=== PATIENT | male | born 1965 | race Caucasian/White ===

== ENCOUNTER 2020-10-08 08:53 | Observation (INO) | payer BC ==
[~2020-10-08] VITALS: Ht 182.9 cm; Wt 109.0 kg
[2020-10-08] MEDS ORDERED: GLUCAGON,HUMAN RECOMBINANT 1 MG/ML VIAL. IV ONE (09:30)
--- NOTE | 2020-10-08 10:00 | PHYS DOC ---
Past Medical History Past Medical History: High Cholesterol, Hypertension Past Surgical History: No Surgical History Smoking Status: Never Smoker Alcohol Use: Occasionally General Adult EDM: Chief Complaint: DIFFICULTY SWALLOWING HPI: HPI: Patient is a 54 year old male who presents with a chief complaint of a food bolus. Patient was eating [place] food and felt like a chicken got stuck in his throat yesterday afternoon. Patient's been unable to keep fluid down and has been unable to even keep water today. And he spits it up. Patient denies any specific pain except when he tries to eat describes mild to moderate discomfort in his chest. Patient had similar episodes in the past and had to undergo endoscopy. Patient denies any specific vomiting, fever, chills or shortness of breath. Pain in the chest is nonradiating when he eats. And is worse with food intake. Review of Systems: Review of Systems: Constitutional: Denies fever or chills. [] Eyes: Denies change in visual acuity. [] HENT: Denies nasal congestion or sore throat. [] Respiratory: Denies cough or shortness of breath. [] Cardiovascular: Patient complains of chest discomfort when eating due to the food bolus but no edema GI: Denies abdominal pain, nausea, vomiting, bloody stools or diarrhea. [] : Denies dysuria. [] Musculoskeletal: Denies back pain or joint pain. [] Integument: Denies rash. [] Neurologic: Denies headache, focal weakness or sensory changes. [] Endocrine: Denies polyuria or polydipsia. [] Lymphatic: Denies swollen glands. [] Psychiatric: Denies depression or anxiety. [] Heart Score: Risk Factors: Risk Factors: DM, Current or recent (<one month) smoker, HTN, HLP, family history of CAD, obesity. Risk Scores: Score 0 - 3: 2.5% MACE over next 6 weeks - Discharge Home Score 4 - 6: 20.3% MACE over next 6 weeks - Admit for Clinical Observation Score 7 - 10: 72.7% MACE over next 6 weeks - Early Invasive Strategies Current Medications: Current Medications Medications (Trade) Dose Ordered Sig/Hudson Start Time Stop Time Status Last Admin Dose Admin Glucagon (Glucagen) 1 mg 1X ONCE 10/08/20 09:30 10/08/20 09:31 DC 10/08/20 09:46 1 MG Allergies: Allergies: Allergies Coded Allergies Type Severity Reaction Last Updated Verified No Known Drug Allergies 10/08/20 No Physical Exam: PE: Constitutional: Well developed, well nourished, no acute distress, non-toxic appearance. [] HENT: Normocephalic, atraumatic, bilateral external ears normal, no active drooling nose normal. [] Eyes: PERRLA, EOMI, conjunctiva normal, no discharge. [] Neck: Normal range of motion, no tenderness, supple, no stridor. [] Cardiovascular:Heart rate regular rhythm, peripheral pulse intact cap refills less than 2 seconds Lungs & Thorax: Bilateral breath sounds clear, no respiratory distress Abdomen: soft, no tenderness, no masses, no pulsatile masses. [] Skin: Warm, dry, no erythema, no rash. [] Back: No tenderness, no CVA tenderness. [] Extremities: No tenderness, no cyanosis, no clubbing, ROM intact, no edema. [] Neurologic: Alert and oriented X 3, normal motor function, normal sensory function, no focal deficits noted. [] Psychologic: Affect normal, judgement normal, mood normal. [] Current Patient Data: Labs: Laboratory Tests Test 10/08/20 09:48 SARS-CoV-2 Antigen (Rapid) Negative Current Medications Medications (Trade) Dose Ordered Sig/Hudson Route PRN Reason Start Time Stop Time Status Last Admin Dose Admin Glucagon (Glucagen) 1 mg 1X ONCE IV 10/08/20 09:30 10/08/20 09:31 DC 10/08/20 09:46 Potassium Chloride/Dextrose/ Sod Cl 1,000 ml @ 125 mls/hr Q8H ONCE IV 10/08/20 10:30 10/08/20 18:29 Vital Signs: Vital Signs Date Time Temp Pulse Resp B/P (MAP) Pulse Ox O2 Delivery O2 Flow Rate FiO2 10/08/20 09:02 98.0 101 18 158/82 (107) 97 Room Air 98.0 EKG: EKG: [] Radiology/Procedures: Radiology/Procedures: [] Course & Med Decision Making: Course & Med Decision Making Pertinent Labs and Imaging studies reviewed. (See chart for details) [] 54-year-old male presents with a food bolus. Patient was given glucagon in the ER with no relief. Patient observed 3040 minutes after that and unable to have any relief. Discussed the case with Dr. Kiser who will take patient to the GI lab at 1:00 today. Maintenance fluids have been ordered. Observation orders have been written. Dragon Disclaimer: Kirsty Disclaimer: This electronic medical record was generated, in whole or in part, using a voice recognition dictation system. Departure Departure Impression: Primary Impression: Food impaction of esophagus Disposition: ADMITTED INPT THIS HOSP Admitting Physician: UMA (KYLE) Condition: STABLE Referrals: PAPITO LIU MD (PCP) JOSE DE JESUS MCDOWELL MD Oct 08, 2020 10:00
[2020-10-08] MEDS ORDERED: POTASSIUM CL 20MEQ D5-0.45NACL 1,000 ML IV ONE (10:30)
[2020-10-08] MEDS ORDERED: ONDANSETRON PF 4 MG/2 ML VIAL. IV PRN (10:45)
[2020-10-08] MEDS ORDERED: LISI-130 PO (12:34)
[2020-10-08] MEDS ORDERED: SIMV20TA18 PO (12:34)
[2020-10-08] MEDS ORDERED: ALBU2.5V8 INH (12:34)
[2020-10-08] MEDS ORDERED: ALLO300T PO (12:34)
[2020-10-08] MEDS ORDERED: PROPOFOL 10 MG/ML (20ML) VIAL. IV ONE ×5 (12:41→15:09)
[2020-10-08] MEDS ORDERED: IV RINGERS,LACTATED 1000ML 1,000 ML IV SCH (13:00)
[2020-10-08] MEDS ORDERED: GLUCAGON,HUMAN RECOMBINANT 1 MG/ML VIAL. IM ONE (15:00)
[2020-10-08] MEDS ORDERED: SUCCINYLCHOLINE 200 MG/10 ML VIAL. ONE (15:00)
[2020-10-08 15:52] VITALS: BP 135/86
--- NOTE | 2020-10-08 16:20 | CONS ---
DATE OF CONSULTATION: 10/08/2020 GASTROINTESTINAL CONSULTATION REQUESTING PHYSICIAN: Mynor Saldivar MD PRIMARY CARE PHYSICIAN: Papito García MD REASON FOR CONSULTATION: Food bolus. HISTORY OF PRESENT ILLNESS: This is a 54-year-old gentleman who came into the Emergency Room approximately 24 hours after eating chicken yesterday. He reports that he has had food boluses in the past and has had endoscopies. His last endoscopy was with Dr. Davis 5 years ago and he reports that he had ulcers at that time. He also reports colonoscopy with Dr. Davis. Currently, he is unable to handle his saliva and vomits water. ADDENDUM: After 2 hours upper endoscopy with successful removal of food bolus, I recommended that the patient be observed in 23-hour due to intubation and overtube use. The patient declined his admission to [place] and said that he needed to go to work. I explained to him that I strongly recommend that he not return because there is a risk of swelling, especially in his airway with intubation and overtube use. Again, he declined. I discussed this with his sister. They expressed understanding. ER precautions were given. PAST MEDICAL HISTORY: 1. Inguinal hernia repair. 2. Gastric ulcers. Last upper endoscopy with Dr. Davis. 3. Hypertension. 4. Hyperlipidemia. 5. Elevated uric acid. 6. Asthma. 7. History of food boluses with endoscopic removal. ALLERGIES: No known drug allergies. MEDICATIONS: 1. Simvastatin. 2. Lisinopril. 3. Allopurinol. 4. Albuterol. SOCIAL HISTORY: Denies tobacco. He drinks occasional alcohol and denies drug use. FAMILY MEDICAL HISTORY: He denies colorectal cancer. REVIEW OF SYSTEMS: A 13-point review of systems was done and is positive as per HPI and otherwise negative. PHYSICAL EXAMINATION: VITAL SIGNS: He is afebrile. Vital signs stable. GENERAL: He is a well-developed, well-nourished male, who is unable to handle secretions. HEENT: He is wearing a mask. CARDIOVASCULAR: S1, S2. LUNGS: Clear. ABDOMEN: Normoactive bowel sounds, soft, nontender, nondistended. EXTREMITIES: No edema. NEUROLOGIC: Awake, alert and oriented x 3. ASSESSMENT AND PLAN: Food bolus. We will proceed with upper endoscopy with food bolus removal. The risks and benefits including bleeding, perforation, non-diagnosis and sedation were explained and he has agreed to proceed. Thank you for allowing me to participate in the care of this patient. SUDHAKAR WRIGHT MD DR: ALEX/elisabet JOB#: [id number] / [id number] PAPITO Estevez MD
== END 2020-10-08 16:28 | disposition home or self-care (01) ==
LOC: ER 08:53 → ED HOLD 10:25
PROVIDERS: ADMIT Internal Medicine Gastroenterology; ATTEND Internal Medicine Gastroenterology
DX: T18.128A Food in esophagus causing other injury, initial encounter (principal); Z20.828 Contact with and (suspected) exposure to other viral communicable diseases; I10 Essential (primary) hypertension; J45.909 Unspecified asthma, uncomplicated; E78.00 Pure hypercholesterolemia, unspecified; E78.5 Hyperlipidemia, unspecified; E79.0 Hyperuricemia without signs of inflammatory arthritis and tophaceous disease; Z87.11 Personal history of peptic ulcer disease; Z98.890 Other specified postprocedural states
CPT/HCPCS: 43247; 87426; 96361; 96374; 99284; G0378; J0330; J1610; J2704; J3480; J7120; U0003; G0379